=== PATIENT | female | born 1980 | race Caucasian/White ===

== ENCOUNTER 2016-09-20 13:46 | Emergency (ER) | payer MEDICAID ==
[~2016-09-20] VITALS: Ht 154.9 cm; Wt 50.0 kg
[~2016-09-20 13:46] MED LIST: FAMO20 PO; FLEEENE3 RE; POLY119S PO
[2016-09-20 13:48] VITALS: BP 146/88; PULSE 92; RESP 20; TEMP 98; O2SAT 97
== END 2016-09-20 15:32 | disposition left against medical advice (07) ==
LOC: NED 13:46
DX: Z53.21 Procedure and treatment not carried out due to patient leaving prior to being seen by health care provider (principal)
CPT/HCPCS: 99281

== ENCOUNTER 2016-12-29 07:05 | Emergency (ER) | payer MEDICAID, OTHER ==
[~2016-12-29] VITALS: Ht 157.5 cm; Wt 52.0 kg
[2016-12-29 07:11] VITALS: BP 104/59; PULSE 74; RESP 16; TEMP 98; O2SAT 98
[2016-12-29] MEDS ORDERED: SODIUM CHLOR 0.9% 1000 ML INJ 1,000 ML IV ONE (07:15)
[2016-12-29] MEDS ORDERED: ONDANSETRON HCL 4 MG/2 ML VIAL IV ONE (07:15)
[2016-12-29] MEDS ORDERED: SODIUM CHLOR 0.9% 1000 ML INJ 1,000 ML IV SCH (07:15)
[2016-12-29] MEDS ORDERED: SODIUM CHLORIDE 0.9% FLUSH 10 ML FLUSH IV FLUSH PRN (07:15)
--- NOTE | 2016-12-29 07:23 | PD ---
HPI Chief Complaint: Nausea Time Seen by Provider: 07:07 Travel History International Travel<30 days: No Contact w/Intl Traveler<30days: No History of Present Illness HPI Is a 36-year-old woman who presents to the emergency department with nausea and vomiting instruction about 9 PM last night. She initially had 1 episode of vomiting. Went to bed and then woke up in the lying copious recurrent vomiting. No abdominal pain. No diarrhea. Last bowel movement was yesterday was normal. No urinary symptoms. She had some chills last night but no definite fever. She was around some family members were sick over the weekend, but she thinks that they just had fevers and URI symptoms. States she's had rare similar episodes in the past with stomach bugs, but nothing regular. She' s had a right ovary taken out but no other abdominal surgeries. No recent travel. No unusual or undercooked foods. No other complaints. History Past Medical History Medical History: Denies Significant Hx : 3 Para: 2 Social History Alcohol Use: No (social) Tobacco Use: Yes (social ) Allergies-Medications (Allergen,Severity, Reaction): Coded Allergies: Penicillin (Verified Allergy, Severe, swelling, 12/29/16) Reported Meds & Prescriptions Reported Meds & Active Scripts Active No Active Prescriptions or Reported Medications Review of Systems Except as stated in HPI: all other systems reviewed are Neg Physical Exam Narrative GENERAL: 36 year-old woman, well-appearing, no acute distress. SKIN: Focused skin assessment warm/dry. CARDIOVASCULAR: Regular rate and rhythm. No murmur appreciated. RESPIRATORY: No accessory muscle use. Clear to auscultation. Breath sounds equal bilaterally. GASTROINTESTINAL: Abdomen soft, non-tender, nondistended. Hepatic and splenic margins not palpable. MUSCULOSKELETAL: No obvious deformities. No edema. NEUROLOGICAL: Awake and alert. No obvious cranial nerve deficits. Motor grossly within normal limits. Normal speech. PSYCHIATRIC: Appropriate mood and affect; insight and judgment normal. Data Data Last Documented VS Vital Signs Date Time Temp Pulse Resp B/P Pulse Ox O2 Delivery O2 Flow Rate FiO2 12/29/16 07:11 98.0 74 16 104/59 98 Orders Beta Hcg (Quant/Titer) (12/29/16 07:15) Complete Blood Count With Diff (12/29/16 07:15) Comprehensive Metabolic Panel (12/29/16 07:15) Lipase (12/29/16 07:15) Iv Access Insert/Monitor (12/29/16 07:15) Sodium Chlor 0.9% 1000 Ml Inj (Ns 1000 M (12/29/16 07:15) Sodium Chloride 0.9% Flush (Ns Flush) (12/29/16 07:15) Sodium Chlor 0.9% 1000 Ml Inj (Ns 1000 M (12/29/16 07:15) Ondansetron Inj (Zofran Inj) (12/29/16 07:15) Labs Laboratory Tests Test 12/29/16 07:20 White Blood Count 12.4 TH/MM3 Red Blood Count 4.88 MIL/MM3 Hemoglobin 13.5 GM/DL Hematocrit 40.1 % Mean Corpuscular Volume 82.1 FL Mean Corpuscular Hemoglobin 27.6 PG Mean Corpuscular Hemoglobin 33.6 % Concent Red Cell Distribution Width 14.5 % Platelet Count 231 TH/MM3 Mean Platelet Volume 7.8 FL Neutrophils (%) (Auto) 84.5 % Lymphocytes (%) (Auto) 11.2 % Monocytes (%) (Auto) 3.1 % Eosinophils (%) (Auto) 0.7 % Basophils (%) (Auto) 0.5 % Neutrophils # (Auto) 10.5 TH/MM3 Lymphocytes # (Auto) 1.4 TH/MM3 Monocytes # (Auto) 0.4 TH/MM3 Eosinophils # (Auto) 0.1 TH/MM3 Basophils # (Auto) 0.1 TH/MM3 CBC Comment DIFF FINAL Differential Comment Sodium Level 140 MEQ/L Potassium Level 3.9 MEQ/L Chloride Level 108 MEQ/L Carbon Dioxide Level 23.0 MEQ/L Anion Gap 9 MEQ/L Blood Urea Nitrogen 8 MG/DL Creatinine 0.75 MG/DL Estimat Glomerular Filtration 88 ML/MIN Rate Random Glucose 97 MG/DL Calcium Level 8.8 MG/DL Total Bilirubin 0.5 MG/DL Aspartate Amino Transf 23 U/L (AST/SGOT) Alanine Aminotransferase 18 U/L (ALT/SGPT) Alkaline Phosphatase 65 U/L Total Protein 8.3 GM/DL Albumin 4.0 GM/DL Lipase 126 U/L Human Chorionic Gonadotropin, LESS THAN 1 Quant MIU/ML MDM Medical Decision Making Medical Screen Exam Complete: Yes Emergency Medical Condition: Yes Interpretation(s) LABS: CBC is remarkable for mild leukocytosis. CMP is unremarkable. HCG is negative. Lipase is normal. Differential Diagnosis Gastroenteritis, gastritis, hepatobiliary disease, pancreatitis, , UTI , dehydration, other Narrative Course Medical decision making 36-year-old woman presents emergent for nausea vomiting. No abdominal pain. Chills with no fever. Assuming diarrhea. No URI symptoms, no UTI symptoms, no vaginal discharge or vaginal bleeding. We'll check labs, , IV fluid rehydration. She received Zofran in route and is feeling improved at this time. Labs are unremarkable for discharge Zofran for supportive treatment and outpatient follow-up. Diagnosis Primary Impression: Nausea & vomiting Additional Instructions: Follow-up with your primary doctor in the next 2-4 days. Return to the emergency department for any worsening abdominal pain, high fevers , bloody diarrhea, or any other new or worsening symptoms. Use Zofran if needed for nausea or vomiting. Med/Other Pt SpecificInfo: Prescription(s) given Scripts No Active Prescriptions or Reported Meds Disposition: 01 DISCHARGE HOME Condition: Stable Jaxon Jarrett MD December 29, 2016 07:23
[2016-12-29 07:41] LABS: AUTOMATED NEUTROPHIL # 10.5 TH/MM3 (1.8-7.7); BASOPHIL # 0.1 TH/MM3 (0-0.2); BASOPHIL % 0.5 % (0.0-2.0); EOSINOPHIL # 0.1 TH/MM3 (0-0.4); EOSINOPHIL % 0.7 % (0.0-4.0); HEMATOCRIT 40.1 % (35.0-46.0); HEMO FLAGS DIFF FINAL; LYMPH % 11.2 % (9.0-44.0); LYMPHOCYTE # 1.4 TH/MM3 (1.0-4.8); MEAN CELL VOLUME 82.1 FL (80.0-100.0); MEAN CORPUSCULAR HEMOGLOBIN 27.6 PG (27.0-34.0); MEAN CORPUSCULAR HGB CONC 33.6 % (32.0-36.0); MONO % 3.1 % (0.0-8.0); NEUT % 84.5 % (16.0-70.0); PLATELET COUNT 231 TH/MM3 (150-450); RED BLOOD COUNT 4.88 MIL/MM3 (4.00-5.30); RED CELL DISTRIBUTION WIDTH 14.5 % (11.6-17.2); WHITE BLOOD COUNT 12.4 TH/MM3 (4.0-11.0)
[2016-12-29 08:00] LABS: ALT (GPT) 18 U/L (10-53); ANION GAP 9 MEQ/L (5-15); AST (GOT) 23 U/L (15-37); BLOOD UREA NITROGEN 8 MG/DL (7-18); CHLORIDE 108 MEQ/L (98-107); GLOMERULAR FILTRATION RATE 88 ML/MIN (>89); POTASSIUM 3.9 MEQ/L (3.5-5.1); SODIUM (NA) 140 MEQ/L (136-145)
[2016-12-29 08:04] LABS: ALKALINE PHOSPHATASE 65 U/L (45-117); BETA HCG QUANT LESS THAN 1 MIU/ML (0-5); TOTAL BILIRUBIN ADULT 0.5 MG/DL (0.2-1.0)
[2016-12-29 08:30] VITALS: BP 130/71; TEMP 98
[2016-12-29] MEDS ORDERED: ZOFR4TAB3 SL (08:33)
== END 2016-12-29 08:30 | disposition home or self-care (01) ==
LOC: NEPC 07:05
DX: R11.2 Nausea with vomiting, unspecified (principal)
CPT/HCPCS: 80053; 83690; 84702; 85025; 96361; 96374; 99284; J2405; J7030

== ENCOUNTER 2017-12-12 11:15 | Emergency (ER) | payer SELFPAY ==
[~2017-12-12] VITALS: Ht 154.9 cm; Wt 50.0 kg
[~2017-12-12 11:15] MED LIST changes: -FAMO20 PO; -FLEEENE3 RE; -POLY119S PO; +ZOFR4TAB3 SL
[2017-12-12 11:44] VITALS: BP 121/68; PULSE 115; RESP 20; TEMP 99.1; O2SAT 100
[2017-12-12 12:29] LABS: AUTOMATED NEUTROPHIL # 4.3 TH/MM3 (1.8-7.7); BASOPHIL % 0.6 % (0.0-2.0); EOSINOPHIL % 0.6 % (0.0-4.0); HEMATOCRIT 41.5 % (35.0-46.0); HEMOGLOBIN 14.2 GM/DL (11.6-15.3); LYMPH % 26.2 % (9.0-44.0); LYMPHOCYTE # 1.7 TH/MM3 (1.0-4.8); MEAN CELL VOLUME 83.4 FL (80.0-100.0); MEAN CORPUSCULAR HEMOGLOBIN 28.5 PG (27.0-34.0); MEAN CORPUSCULAR HGB CONC 34.1 % (32.0-36.0); MEAN PLATELET VOLUME 7.3 FL (7.0-11.0); MONO % 6.5 % (0.0-8.0); MONOCYTE # 0.4 TH/MM3 (0-0.9); NEUT % 66.1 % (16.0-70.0); PLATELET COUNT 312 TH/MM3 (150-450); RED BLOOD COUNT 4.97 MIL/MM3 (4.00-5.30); RED CELL DISTRIBUTION WIDTH 14.8 % (11.6-17.2); WHITE BLOOD COUNT 6.5 TH/MM3 (4.0-11.0)
[2017-12-12] MEDS ORDERED: SODIUM CHLOR 0.9% 1000 ML INJ 1,000 ML IV SCH (12:38)
--- NOTE | 2017-12-12 12:41 | PD ---
HPI Chief Complaint: Syncope/Near-Syncope Time Seen by Provider: 12:27 Travel History International Travel<30 days: No Contact w/Intl Traveler<30days: No Traveled to known affect area: No History of Present Illness HPI 37-year-old female presents to the emergency department with complaint of syncopal episode yesterday while she was in [place]. She started feeling nauseated and went to the bathroom to see if she needed to throw up to feel better and she became diaphoretic and fainted. Paramedics came to her aid and they said her blood pressure was low, she does not recall hello. She says she does have history of hypotension. Does not have history of fainting. She says she has had decreased appetite for the past few days and has not eaten anything and has barely drink anything. Reports feeling fatigued and having difficulty sleeping. Denies headache, lightheadedness, dizziness. Denies chest pain, shortness of breath, abdominal pain. Denies vomiting. Says when the episode occurred her body locked up and she could not talk or move. She has not taken any medications or tried any treatments to alleviate her symptoms. No known aggravating or relieving factors. Symptoms are moderate in severity. Primary care provider is Dr. Rowe. Allergies to penicillin. Denies other significant past medical history. Has no other medical complaints. No other modifying factors or associated signs and symptoms. PFSH Past Medical History Hx Anticoagulant Therapy: No Cardiovascular Problems: No Chemotherapy: No Cerebrovascular Accident: No Diabetes: No Diminished Hearing: No Respiratory: No Immunizations Current: Yes Thyroid Disease: Yes (hypo) ?: Not LMP: on now : 3 Para: 2 Miscarriage: 1 Past Surgical History Gynecologic Surgery: Yes Hysterectomy: No Other Surgery: Yes (left ovary removed after an ectopic ) Social History Alcohol Use: Yes (social) Tobacco Use: Yes (social ) Substance Use: Yes (WEED) Allergies-Medications (Allergen,Severity, Reaction): Coded Allergies: penicillin G (Unverified Allergy, Severe, swelling, 03/29/17) Reported Meds & Prescriptions Reported Meds & Active Scripts Active Zofran Odt (Ondansetron Odt) 4 Mg Tab 4 Mg SL Q8HR PRN May substitute non-ODT form. Review of Systems Except as stated in HPI: all other systems reviewed are Neg Physical Exam Narrative GENERAL: Well-nourished, well-developed female patient, in no acute distress SKIN: Warm and dry. HEAD: Atraumatic. Normocephalic. No facial droop noted. Tongue midline. Shoulder shrug equal. Finger to nose test normal. EYES: Pupils equal and round at 3 mm with brisk reaction. No scleral icterus. No injection or drainage. PERRLA. EOMI. ENT: Mucosa pink and moist. No erythema or exudates. No uvular edema. No uvular , palatal, or tonsillar deviation. Airway patent. Nasal turbinates appear normal without nasal blood, purulent drainage or septal hematoma. NECK: Trachea midline. No lymphadenopathy. CARDIOVASCULAR: Tachycardic 110's rate and rhythm. No murmur appreciated. RESPIRATORY: No accessory muscle use. Breath sounds clear and equal bilaterally. No retractions or tachypnea. GASTROINTESTINAL: Abdomen soft, non-tender, nondistended. Positive bowel sounds. No hepato-splenomegaly, or palpable masses. No guarding. MUSCULOSKELETAL: No obvious deformities. No clubbing. No cyanosis. No edema. NEUROLOGICAL: Awake and alert. Oriented 4. No obvious cranial nerve deficits. Motor grossly within normal limits. Normal speech. No ataxia. No mid -line drift. No upper or lower extremity drift. 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 Sensory intact and equal bilaterally. Moves all extremities. Active plantar and dorsiflexion and strength equal bilaterally. 5/5 strength to all extremities. PSYCHIATRIC: Appropriate mood and affect; insight and judgment normal. Data Data Last Documented VS Vital Signs Date Time Temp Pulse Resp B/P (MAP) Pulse Ox O2 Delivery O2 Flow Rate FiO2 12/12/17 13:00 71 112/66 (81) 82 129/85 (100) 85 131/80 (97) 12/12/17 12:50 97 Room Air 12/12/17 11:44 99.1 20 Orders Orders Electrocardiogram (12/12/17 11:46) Ed Urine Pregnancytest Poc (12/12/17 11:46) Complete Blood Count With Diff (12/12/17 11:46) Comprehensive Metabolic Panel (12/12/17 11:46) Magnesium (Mg) (12/12/17 11:46) Ckmb (Isoenzyme) Profile (12/12/17 11:46) Troponin I (12/12/17 11:46) Urinalysis - C+S If Indicated (12/12/17 11:46) Orthostatic Vital Signs (12/12/17 12:29) Iv Access Insert/Monitor (12/12/17 12:38) Ondansetron Inj (Zofran Inj) (12/12/17 12:45) Sodium Chlor 0.9% 1000 Ml Inj (Ns 1000 M (12/12/17 12:38) Sodium Chloride 0.9% Flush (Ns Flush) (12/12/17 12:45) Urine Culture (12/12/17 12:15) Ceftriaxone Inj (Rocephin Inj) (12/12/17 13:00) Labs Laboratory Tests Test 12/12/17 12:15 White Blood Count 6.5 TH/MM3 Red Blood Count 4.97 MIL/MM3 Hemoglobin 14.2 GM/DL Hematocrit 41.5 % Mean Corpuscular Volume 83.4 FL Mean Corpuscular Hemoglobin 28.5 PG Mean Corpuscular Hemoglobin Concent 34.1 % Red Cell Distribution Width 14.8 % Platelet Count 312 TH/MM3 Mean Platelet Volume 7.3 FL Neutrophils (%) (Auto) 66.1 % Lymphocytes (%) (Auto) 26.2 % Monocytes (%) (Auto) 6.5 % Eosinophils (%) (Auto) 0.6 % Basophils (%) (Auto) 0.6 % Neutrophils # (Auto) 4.3 TH/MM3 Lymphocytes # (Auto) 1.7 TH/MM3 Monocytes # (Auto) 0.4 TH/MM3 Eosinophils # (Auto) 0.0 TH/MM3 Basophils # (Auto) 0.0 TH/MM3 CBC Comment DIFF FINAL Differential Comment Urine Color YELLOW Urine Turbidity HAZY Urine pH 5.5 Urine Specific [place] 1.024 Urine Protein 30 mg/dL Urine Glucose (UA) NEG mg/dL Urine Ketones 10 mg/dL Urine Occult Blood SMALL Urine Nitrite POS Urine Bilirubin NEG Urine Urobilinogen LESS THAN 2.0 MG/DL Urine Leukocyte Esterase TRACE Urine RBC 1 /hpf Urine WBC 4 /hpf Urine Squamous Epithelial Cells 10 /hpf Urine Bacteria MOD /hpf Urine Hyaline Casts 2 /lpf Urine Mucus MANY /lpf Microscopic Urinalysis Comment CULTURE INDICATED Blood Urea Nitrogen 9 MG/DL Creatinine 0.78 MG/DL Random Glucose 95 MG/DL Total Protein 8.5 GM/DL Albumin 4.2 GM/DL Calcium Level 8.7 MG/DL Magnesium Level 2.2 MG/DL Alkaline Phosphatase 81 U/L Aspartate Amino Transf (AST/SGOT) 15 U/L Alanine Aminotransferase (ALT/SGPT) 14 U/L Total Bilirubin 0.4 MG/DL Sodium Level 139 MEQ/L Potassium Level 3.5 MEQ/L Chloride Level 105 MEQ/L Carbon Dioxide Level 25.8 MEQ/L Anion Gap 8 MEQ/L Estimat Glomerular Filtration Rate 84 ML/MIN Total Creatine Kinase 85 U/L Troponin I LESS THAN 0.02 NG/ML MDM Medical Decision Making Medical Screen Exam Complete: Yes Emergency Medical Condition: Yes Medical Record Reviewed: Yes Differential Diagnosis Dehydration, electrolyte imbalance, hypotension, syncopal episode, arrhythmia, seizure Narrative Course 37-year-old female syncopal episode yesterday. CBC, BMP, troponin, CK-MB, magnesium, EKG, urinalysis ordered in triage. UPT negative. Orthostatic vital signs and CT head ordered. IV, normal saline bolus, Zofran ordered. 1248: CBC unremarkable. Urinalysis with signs of infection and reflex to culture. Rocephin 1 g IV ordered. EKG with normal sinus rhythm; without ST elevation or depression; reviewed by Dr. Hays. 1300: I discussed the patient has has UTI. She now informed me that while she was in [place] she was not eating because she was drinking alcohol all day and says that she was living off [facility]. I do not feel that her syncopal episode was related to any intracranial process and the patient agrees. CT scan head canceled. 1306: CMP unremarkable. Troponin less than 0.02. Orthostatic vital signs unremarkable. 1350: Bactrim prescribed for home. Instructed patient to follow up with primary care provider. Patient verbalizes understanding and agreement with treatment plan. Patient is medically cleared and stable for discharge. Discussed reasons to return to the emergency department. Patient agrees with treatment plan. The patients vital signs are stable and the patient is stable for outpatient follow-up and treatment. Patient discharged home, stable and in no acute distress. Diagnosis Primary Impression: Syncopal episodes Qualified Codes: R55 - Syncope and collapse Additional Impression: UTI (urinary tract infection) Qualified Codes: N39.0 - Urinary tract infection, site not specified; R31.9 - Hematuria, unspecified Referrals: [facility] Primary Care Physician Patient Instructions: General Instructions, Syncope (ED), Urinary Tract Infection in Women (ED) Additional Instructions: Take antibiotics as prescribed and complete full course Drink plenty of fluids Maintain good personal hygiene Follow-up with primary care provider Return to the emergency department immediately with worsening of symptoms Med/Other Pt SpecificInfo: Prescription(s) given Scripts Sulfamethoxazole-Trimethoprim (Bactrim DS) 800-160 Mg Tab 1 TAB PO BID for Infection for 7 Days, #14 TAB 0 Refills Prov: Loretta Rhodes 12/12/17 Disposition: 01 DISCHARGE HOME Condition: Stable Loretta Rhodes Dec 12, 2017 12:41
[2017-12-12 12:42] LABS: ALBUMIN 4.2 GM/DL (3.4-5.0); AST (GOT) 15 U/L (15-37); BICARBONATE 25.8 MEQ/L (21.0-32.0); BLOOD UREA NITROGEN 9 MG/DL (7-18); CALCIUM 8.7 MG/DL (8.5-10.1); CHLORIDE 105 MEQ/L (98-107); CREATININE 0.78 MG/DL (0.50-1.00); GLOMERULAR FILTRATION RATE 84 ML/MIN (>89); GLUCOSE,RANDOM 95 MG/DL (74-106); MAGNESIUM 2.2 MG/DL (1.5-2.5); SODIUM (NA) 139 MEQ/L (136-145)
[2017-12-12 12:44] LABS: BACTERIA, URINE MOD /hpf; BILIRUBIN, URINE NEG (NEG); BLOOD, URINE SMALL (NEG); GLUCOSE,URINE NEG (NEG); HYALINE CAST, URINE 2 /lpf (RARE); KETONE, URINE 10 mg/dL (NEG); MUCUS URINE MANY /lpf (OCC); NITRITE,URINE POS (NEG); PH, URINE 5.5 (5.0-8.5); SQUAMOUS EPITHELIAL CELL URINE 10 /hpf (0-5); URINE COLOR YELLOW (YELLW/STRAW); URINE LEUKOCYTE ESTERASE TRACE (NEG)
[2017-12-12] MEDS ORDERED: SODIUM CHLORIDE 0.9% FLUSH 10 ML FLUSH IV FLUSH PRN (12:45)
[2017-12-12] MEDS ORDERED: ONDANSETRON HCL 4 MG/2 ML VIAL IVP ONE (12:45)
[2017-12-12 12:47] LABS: ALKALINE PHOSPHATASE 81 U/L (45-117); ALT (GPT) 14 U/L (10-53); TOTAL BILIRUBIN ADULT 0.4 MG/DL (0.2-1.0); TOTAL PROTEIN 8.5 GM/DL (6.4-8.2); TROPONIN I LESS THAN 0.02 NG/ML (0.02-0.05)
[2017-12-12 13:00] VITALS: BP_SYST 112; BP_SYST 129; BP_SYST 131; BP_DIAS 66; BP_DIAS 80; BP_DIAS 85
[2017-12-12] MEDS ORDERED: cefTRIAXone INJ 1,000 MG in SODIUM CHLORIDE 0.9% INJ 100 ML IV ONE (13:00)
[2017-12-12] MEDS ORDERED: BACT800T5 PO (13:50)
[2017-12-12 14:03] VITALS: BP 125/62
--- NOTE | 2017-12-12 17:42 | EKG ---
Date Performed: 12/12/2017 Time Performed: 12:09:41 PTAGE: 37 years EKG: Baseline artifact present Sinus rhythm POSSIBLE RIGHT VENTRICULAR CONDUCTION DELAY BORDERLINE ECG No significant change from prior electroc ardiogram. PREVIOUS TRACING : 02/16/2015 21.12 DOCTOR: Anibal Sierra Interpretating Date/Time 12/12/2017 17:41:58
== END 2017-12-12 14:07 | disposition home or self-care (01) ==
LOC: NEPD 11:15
DX: R55 Syncope and collapse (principal); N39.0 Urinary tract infection, site not specified; R31.9 Hematuria, unspecified; F12.90 Cannabis use, unspecified, uncomplicated; Z72.0 Tobacco use
CPT/HCPCS: 80053; 81001; 82550; 83735; 84484; 84703; 85025; 87077; 87086; 87186; 93005; 96374; 96375; 99285; J0696; J2405; J7030